=== PATIENT | male | born 1960 | race Caucasian/White ===

== ENCOUNTER 2017-08-10 19:34 | Inpatient (IN) | payer OTHER ==
[~2017-08-10] VITALS: Ht 167.6 cm; Wt 95.5 kg
[2017-08-10 20:20] LABS: BASOPHILS % (AUTO) 1.9 % (0.0-5.0); EOSINOPHILS % (AUTO) 3.2 % (0.0-8.0); LYMPHOCYTES % (AUTO) 20.7 % (21.0-51.0); MEAN CORPUSCULAR HEMOGLOBIN 27.3 pg (27.0-33.0); MEAN CORPUSCULAR VOLUME 80.3 fL (79-99); MONOCYTES % (AUTO) 8.1 % (3.0-13.0); NEUTROPHILS % (AUTO) 66.1 % (40.0-77.0); PLATELET COUNT (AUTO) 274 K/uL (130-400); RED BLOOD CELL COUNT(AUTO) 2.61 MIL/uL (4.50-6.20); RED CELL DISTRIBUTION WIDTH 16.8 % (11.0-15.5); WHITE BLOOD COUNT (AUTO) 7.5 K/uL (4.8-10.8)
[2017-08-10 20:36] LABS: INR 0.99 (0.85-1.15); PARTIAL THROMBOPLASTIN TIME 34.9 SEC (26.3-35.5); PROTHROMBIN TIME 10.4 SEC (9.6-11.6)
[2017-08-10 20:40] LABS: ALBUMIN 2.6 g/dL (3.5-5.0); BILIRUBIN,TOTAL 0.2 mg/dL (0.2-1.0); CREATININE 2.3 mg/dL (0.5-1.5); TOTAL PROTEIN, SERUM 7.9 g/dL (6.0-8.3)
[2017-08-10 20:43] LABS: POTASSIUM 6.3 mmol/L (3.5-5.1)
[2017-08-10] MEDS ORDERED: SODIUM POLYSTYRENE SULFONATE 15 GM/60 ML ML ONE (23:41)
[2017-08-10] MEDS ORDERED: CALCIUM GLUCONATE 1 GM/10 ML VIAL IV ONE (23:43)
[2017-08-11 06:00] LABS: HEMATOCRIT 21.8 % (42-54); MEAN CORPUSCULAR HEMOGLOBIN 25.9 pg (27.0-33.0); MEAN CORPUSCULAR HGB CONC 32.8 g/dL (32.0-36.0); MEAN CORPUSCULAR VOLUME 79.2 fL (79-99); PLATELET COUNT (AUTO) 292 K/uL (130-400); RED BLOOD CELL COUNT(AUTO) 2.76 MIL/uL (4.50-6.20); RED CELL DISTRIBUTION WIDTH 16.9 % (11.0-15.5); WHITE BLOOD COUNT (AUTO) 6.2 K/uL (4.8-10.8)
[2017-08-11 06:08] LABS: CREATININE 2.2 mg/dL (0.5-1.5); POTASSIUM 5.4 mmol/L (3.5-5.1)
[2017-08-11 06:25] LABS: CREATINE KINASE MB < 0.5 ng/mL (0.5-3.6); CREATINE KINASE, TOTAL 39 U/L (21-232); MYOGLOBIN 70 ng/mL (10-92); TROPONIN I < 0.04 ng/mL (0.00-0.06)
[2017-08-11 06:33] LABS: % IRON SATURATION 15.2 % (30-44)
[2017-08-11 07:55] LABS: BASOPHILS % (MANUAL) 1 % (0-2); EOSINOPHILS % (MANUAL) 4 % (1-6); LYMPHOCYTES % (MANUAL) 25 % (22-44); MAN.DIFF COMMENT-IMPRESSION MANUAL DIFFERENTIAL; MONOCYTES % (MANUAL) 6 % (2-9); PLATELET MORPHOLOGY COMMENT ADEQUATE; SEGMENTED NEUTROPHILS % 64 % (40-70)
[2017-08-11] MEDS: FERROUS SULFATE 325 MG TABLET.DR PO SCH ×3 (09:00→20:10)
[2017-08-11] MEDS ORDERED: METOPROLOL TARTRATE 50 MG TAB ONE (09:48)
[2017-08-11 10:30] VITALS: BP 157/72
[2017-08-11] MEDS ORDERED: HYDRALAZINE HCL 20 MG/ML VIAL ONE (11:41)
[2017-08-11] MEDS ORDERED: HYDRALAZINE HCL 20 MG/ML VIAL IV PRN (11:45)
[2017-08-11] MEDS ORDERED: LISI10TA7 PO (12:37)
[2017-08-11] MEDS ORDERED: CYCL5TAB PO (12:37)
[2017-08-11] MEDS ORDERED: COMPOUND IV MISC 1 EACH IVSOLN MISC PRN (14:00)
[2017-08-11 16:00] VITALS: BP 155/98
[2017-08-11] MEDS: ACETAMINOPHEN 325 MG TAB PO PRN ×2 (16:43→20:25)
[2017-08-11 19:00] VITALS: BP 157/65
[2017-08-11] MEDS: METOPROLOL TARTRATE 50 MG TAB PO SCH (20:10)
[2017-08-12] VITALS (7 sets, daily range): BP systolic 150–175; BP diastolic 61–76
[2017-08-12 05:39] LABS: MEAN CORPUSCULAR HEMOGLOBIN 27.1 pg (27.0-33.0); MEAN CORPUSCULAR HGB CONC 34.5 g/dL (32.0-36.0); MEAN CORPUSCULAR VOLUME 78.5 fL (79-99); PLATELET COUNT (AUTO) 257 K/uL (130-400); RED BLOOD CELL COUNT(AUTO) 2.67 MIL/uL (4.50-6.20); RED CELL DISTRIBUTION WIDTH 16.7 % (11.0-15.5); WHITE BLOOD COUNT (AUTO) 6.1 K/uL (4.8-10.8)
[2017-08-12 05:48] LABS: HEMATOCRIT 20.9 % (42-54)
[2017-08-12 06:00] LABS: CREATININE 2.2 mg/dL (0.5-1.5); PHOSPHORUS 4.6 mg/dL (2.5-4.9); POTASSIUM 5.6 mmol/L (3.5-5.1); THYROID STIMULATING HORMONE 0.71 uIU/mL (0.36-3.74); URIC ACID 6.9 mg/dL (2.6-7.2)
[2017-08-12] MEDS: ACETAMINOPHEN 325 MG TAB PO PRN ×3 (06:27→20:55)
[2017-08-12 07:04] LABS: BASOPHILS % (MANUAL) 3 % (0-2); EOSINOPHILS % (MANUAL) 2 % (1-6); LYMPHOCYTES % (MANUAL) 29 % (22-44); MONOCYTES % (MANUAL) 3 % (2-9); SEGMENTED NEUTROPHILS % 63 % (40-70)
[2017-08-12 07:05] LABS: MAN.DIFF COMMENT-IMPRESSION MANUAL DIFFERENTIAL; PLATELET MORPHOLOGY COMMENT ADEQUATE
[2017-08-12] MEDS: METOPROLOL TARTRATE 50 MG TAB PO SCH ×2 (08:38→20:55)
[2017-08-12] MEDS: FERROUS SULFATE 325 MG TABLET.DR PO SCH ×3 (08:38→20:54)
[2017-08-12] MEDS: FOLIC ACID/VITAMIN B COMP W-C 1 MG CAPSULE PO SCH (08:38)
[2017-08-12] MEDS: IRON SUCROSE COMPLEX 100 MG in SODIUM CHLORIDE 0.9% 50 ML IV SCH (08:39)
[2017-08-12] MEDS ORDERED: LISINOPRIL 10 MG TABLET PO SCH (09:00)
[2017-08-13] MEDS: ACETAMINOPHEN 325 MG TAB PO PRN (03:24)
[2017-08-13 04:00] VITALS: BP 152/69
[2017-08-13 05:43] LABS: HEMATOCRIT 24.3 % (42-54); MEAN CORPUSCULAR VOLUME 78.8 fL (79-99); PLATELET COUNT (AUTO) 272 K/uL (130-400); RED BLOOD CELL COUNT(AUTO) 3.08 MIL/uL (4.50-6.20); RED CELL DISTRIBUTION WIDTH 16.6 % (11.0-15.5); WHITE BLOOD COUNT (AUTO) 6.9 K/uL (4.8-10.8)
[2017-08-13 05:46] LABS: CREATININE 2.1 mg/dL (0.5-1.5)
[2017-08-13 08:00] VITALS: BP 182/70
[2017-08-13 08:39] LABS: BASOPHILS % (MANUAL) 1 % (0-2); EOSINOPHILS % (MANUAL) 4 % (1-6); LYMPHOCYTES % (MANUAL) 19 % (22-44); MAN.DIFF COMMENT-IMPRESSION MANUAL DIFFERENTIAL; MONOCYTES % (MANUAL) 8 % (2-9); PLATELET MORPHOLOGY COMMENT ADEQUATE; SEGMENTED NEUTROPHILS % 68 % (40-70)
[2017-08-13] MEDS: METOPROLOL TARTRATE 50 MG TAB PO SCH (09:00)
[2017-08-13] MEDS: FOLIC ACID/VITAMIN B COMP W-C 1 MG CAPSULE PO SCH (09:00)
[2017-08-13] MEDS: FERROUS SULFATE 325 MG TABLET.DR PO SCH ×2 (09:00→13:29)
[2017-08-13] MEDS: IRON SUCROSE COMPLEX 100 MG in SODIUM CHLORIDE 0.9% 50 ML IV SCH (09:07)
[2017-08-13] MEDS ORDERED: NIFEDIPINE ER 30 MG TAB PO SCH (11:45)
[2017-08-13 12:00] VITALS: BP 174/74
== END 2017-08-13 16:20 | disposition home or self-care (01) | DRG 682 ==
LOC: EDH 19:34 → EDHIP 08-11 01:00 → 4BH 08-11 10:42
PROVIDERS: ADMIT Internal Medicine Nephrology; ATTEND Internal Medicine Nephrology
PROC: 30233N1 Transfusion of Nonautologous Red Blood Cells into Peripheral Vein, Percutaneous Approach (ICD-10-PCS; principal; 2017-08-11)
DX: N17.9 Acute kidney failure, unspecified (principal); E43 Unspecified severe protein-calorie malnutrition; L03.115 Cellulitis of right lower limb; L03.116 Cellulitis of left lower limb; E87.5 Hyperkalemia; I12.9 Hypertensive chronic kidney disease with stage 1 through stage 4 chronic kidney disease, or unspecified chronic kidney disease; D63.1 Anemia in chronic kidney disease; F79 Unspecified intellectual disabilities; N18.9 Chronic kidney disease, unspecified; R62.7 Adult failure to thrive
CPT/HCPCS: 36415; 36430; 71045; 74176; 76700; 80048; 80053; 82270; 82550; 82553; 82728; 83540; 83550; 83735; 83874; 84100; 84443; 84484; 84550; 85025; 85610; 85730; 86850; 86900; 86901; 86922; 93005; 99291; J0360; J0610; J1756; P9016

== ENCOUNTER 2017-08-22 13:26 | Emergency (ER) | payer OTHER ==
[~2017-08-22 13:26] MED LIST: CYCL5TAB PO
[2017-08-22 15:59] LABS: EOSINOPHILS % (AUTO) 3.8 % (0.0-8.0); HEMATOCRIT 24.5 % (42-54); LYMPHOCYTES % (AUTO) 19.2 % (21.0-51.0); MEAN CORPUSCULAR HEMOGLOBIN 27.6 pg (27.0-33.0); MEAN CORPUSCULAR HGB CONC 34.6 g/dL (32.0-36.0); MEAN CORPUSCULAR VOLUME 79.6 fL (79-99); MONOCYTES % (AUTO) 5.1 % (3.0-13.0); NEUTROPHILS % (AUTO) 69.9 % (40.0-77.0); PLATELET COUNT (AUTO) 285 K/uL (130-400); RED BLOOD CELL COUNT(AUTO) 3.08 MIL/uL (4.50-6.20); RED CELL DISTRIBUTION WIDTH 16.9 % (11.0-15.5); WHITE BLOOD COUNT (AUTO) 7.5 K/uL (4.8-10.8)
[2017-08-22 16:07] LABS: CREATININE 2.2 mg/dL (0.5-1.5); POTASSIUM 5.5 mmol/L (3.5-5.1)
== END 2017-08-22 18:39 | disposition home or self-care (01) ==
LOC: EDH 13:26
DX: S30.0XXA Contusion of lower back and pelvis, initial encounter (principal); N28.9 Disorder of kidney and ureter, unspecified; D64.9 Anemia, unspecified; I10 Essential (primary) hypertension; J44.9 Chronic obstructive pulmonary disease, unspecified; Z87.891 Personal history of nicotine dependence; W18.39XA Other fall on same level, initial encounter; Y93.01 Activity, walking, marching and hiking; Y92.89 Other specified places as the place of occurrence of the external cause; Y99.8 Other external cause status
CPT/HCPCS: 36415; 72131; 80048; 85025